=== PATIENT | female | born 1945 | race Caucasian/White ===

== ENCOUNTER 2016-08-12 16:50 | Emergency (ER) | payer OTHER, MEDICARE ==
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
--- NOTE | 2016-08-12 17:11 | XR ---
EXAMINATION TYPE: XR pelvis AP view DATE OF EXAM: 08/12/2016 5:07 PM CLINICAL HISTORY: pain TECHNIQUE: Single view the pelvis is submitted. FINDINGS: No evidence for fracture, dislocation or bony lesion. Joint spaces are well-preserved. S I joints appear symmetric. IMPRESSION: 1. No acute fracture or dislocation seen. ICD 10 NO FRACTURE, INITIAL EVALUATION
--- NOTE | 2016-08-12 17:13 | XR ---
EXAMINATION TYPE: XR chest 1V portable DATE OF EXAM: 08/12/2016 5:07 PM COMPARISON: 04/04/2010 HISTORY: Shortness of breath TECHNIQUE: Frontal and lateral views of the chest are obtained. FINDINGS: Scattered senescent parenchymal changes noted. Hyperinflation compatible with COPD. No evidence for infiltrate. No evidence for atelectasis. Heart size is stable. Mediastinal structures are stable and grossly unremarkable. No evidence for hilar prominence. Degenerative changes dorsal spine. IMPRESSION: 1. No evidence for acute pulmonary disease.
[2016-08-12 17:22] LABS: Basophils % (A) 0 %; CH 31.1; Eosinophils # (A) 0.1 k/uL (0-0.7); Eosinophils % (A) 1 %; HCT 40.1 % (34.0-46.0); HDW 2.14; HGB 13.7 gm/dL (11.4-16.0); Luc # (Auto) 0.21; Luc % (Auto) 3; Lymphocytes % (A) 29 %; MCH 31.2 pg (25.0-35.0); MCV 91.7 fL (80.0-100.0); Mean Platelet Volume 7.1; Monocytes # (A) 0.4 k/uL (0-1.0); Monocytes % (A) 6 %; Neutrophils # (A) 4.1 k/uL (1.3-7.7); Neutrophils % (A) 61 %; RBC 4.38 m/uL (3.80-5.40); RDW 12.8 % (11.5-15.5); WBC 6.8 k/uL (3.8-10.6)
[2016-08-12 17:23] LABS: Glucose,Whole Blood 99 mg/dL (75-99)
[2016-08-12 17:31] LABS: ALT 83 U/L (9-52); AST 178 U/L (14-36); Alcohol <10 mg/dL; Alkaline Phosphatase 72 U/L (38-126); Amylase 101 U/L (30-110); Anion Gap 10 mmol/L; Blood Urea Nitrogen 12 mg/dL (7-17); Calcium 9.9 mg/dL (8.4-10.2); Carbon Dioxide 24 mmol/L (22-30); Chloride 105 mmol/L (98-107); Glucose 106 mg/dL (74-99); Non-African American GFR(MDRD) >60 (>60 ml/min/1.73 sqM); Potassium 4.2 mmol/L (3.5-5.1); Sodium 139 mmol/L (137-145); Total Bilirubin 0.9 mg/dL (0.2-1.3); Total Protein 7.7 g/dL (6.3-8.2)
[2016-08-12 17:36] LABS: Creatine Kinase 125 U/L (30-135)
[2016-08-12 17:38] LABS: Partial Thromboplastin Time 21.3 sec (22.0-30.0); Prothrombin Time 10.3 sec (9.0-12.0)
[2016-08-12 17:49] LABS: Creatine Kinase MB 1.6 ng/mL (0.0-2.4); Troponin I <0.012 ng/mL (0.000-0.034)
[2016-08-12] MEDS ORDERED: ONDANSETRON 4 MG/2 ML VIAL IVP STA (17:58)
[2016-08-12] MEDS ORDERED: KETOROLAC 30 MG/ML 1 ML VIAL IVP STA (17:58)
--- NOTE | 2016-08-12 18:30 | XR ---
EXAMINATION TYPE: XR humerus LT DATE OF EXAM: 08/12/2016 6:19 PM CLINICAL HISTORY: pain TECHNIQUE: Frontal and lateral images of the left humerus are obtained. COMPARISON: None. FINDINGS: There is no acute fracture/dislocation evident. The joint spaces appear within normal limi ts. The overlying soft tissue appears unremarkable. IMPRESSION: There is no acute fracture or dislocation. ICD 10 NO FRACTURE, INITIAL EVALUATION
--- NOTE | 2016-08-12 18:33 | XR ---
EXAMINATION TYPE: XR tibia fibula RT DATE OF EXAM: 08/12/2016 6:20 PM CLINICAL HISTORY: pain TECHNIQUE: AP and lateral images of the right tibia and fibula are obtained. COMPARISON: None. FINDINGS: There is no acute fracture/dislocation evident. The joint spaces appear within normal hines its. The overlying soft tissue appears unremarkable. IMPRESSION: There is no acute fracture or dislocation seen. ICD 10 NO FRACTURE, INITIAL EVALUATION
[2016-08-12 19:17] VITALS: BP 164/74; PULSE 104; RESP 18; TEMP 98
== END 2016-08-12 19:12 | disposition home or self-care (01) ==
LOC: EC 16:50
DX: T14.8 Other injury of unspecified body region (principal); Z79.82 Long term (current) use of aspirin; M25.512 Pain in left shoulder; M25.562 Pain in left knee; V89.2XXA Person injured in unspecified motor-vehicle accident, traffic, initial encounter; Y92.89 Other specified places as the place of occurrence of the external cause
CPT/HCPCS: 99285; 96374; 96375; 36415; 93005; 80053; 82150; 82550; 82553; 83690; 84484; 85025; 85610; 85730; 80320; 71010; 72170; 73060; 73590; J2405; J1885

== ENCOUNTER → 2016-12-18 | Outpatient (CLI) | payer MEDICARE, OTHER ==
--- NOTE | 2016-12-24 07:06 | MM ---
Reason for exam: screening (asymptomatic). History: Patient is postmenopausal, has history of other cancer at age 69, and has history of endometrial cancer at age 41. Benign excisional biopsy of both breasts. Physical Findings: A clinical breast exam by your physician is recommended on an annual basis and results should be correlated with mammographic findings. MG 3D Screening Mammo W/Cad Bilateral CC and MLO view(s) were taken. No prior studies available for comparison. The breast tissue is extremely dense which could obscure a lesion on mammography. There is no discrete abnormality. ASSESSMENT: Benign, BI-RAD 2 RECOMMENDATION: Routine screening mammogram of both breasts in 1 year.
== END | disposition home or self-care (01) ==
LOC: RADMAMWWP 14:32
PROVIDERS: ATTEND Family Medicine
DX: Z12.31 Encounter for screening mammogram for malignant neoplasm of breast (principal)
CPT/HCPCS: 77063; G0202

== ENCOUNTER 2017-10-12 11:40 | Emergency (ER) | payer MEDICARE, OTHER ==
[2017-10-12 12:03] VITALS: RESP 16
--- NOTE | 2017-10-12 12:37 | XR ---
EXAMINATION TYPE: XR hand complete RT DATE OF EXAM: 10/12/2017 COMPARISON: NONE HISTORY: 71-year-old female with bruising and swelling to the hand after fall TECHNIQUE: 3 views FINDINGS: Degenerative spurring and joint space narrowing throughout the DIP joints. No acute fracture, subluxa tion, or dislocation. IMPRESSION: Osteoarthritic changes without acute osseous abnormality seen.
[2017-10-12] MEDS ORDERED: DIPH,PERTUS(ACELL)TETVAC-LF 0.5 ML VIAL IM ONE (12:40)
--- NOTE | 2017-10-12 12:50 | ED ---
General Adult HPI - General Chief complaint: Fall Stated complaint: FALL, RT HEAD, HAND, ARM AND KNEE INJURY Time Seen by Provider: 10/12/17 12:05 Source: patient, RN notes reviewed Mode of arrival: ambulatory Limitations: no limitations - History of Present Illness Initial comments: 71-year-old female presents to the emergency department for a chief complaint of right hand pain x 2 hours. Patient was walking on a sidewalk when she tripped on uneven cement. Patient fell on her right hand and right knee. Patient also scraped her right forehead on the ground. Patient denies loss of consciousness, headache, vomiting or nausea, confusion. Patient denies any visual changes. Patient denies being on blood thinners. Patient denies pain in the right knee but states there is a small abrasion. Patient states most of the pain is in her right hand. Patient denies wrist pain. Patient has no other complaints at this time including shortness of breath, chest pain, abdominal pain, nausea or vomiting, headache, or visual changes. - Related Data Home Medications Medication Instructions Recorded Confirmed Aspirin EC [Ecotrin Low Dose] 81 mg PO DAILY 08/12/16 08/12/16 Previous Rx's Medication Instructions Recorded traMADol HCl [Ultram] 50 mg PO Q6H PRN #20 tab 08/12/16 Allergies Allergy/AdvReac Type Severity Reaction Status Date / Time No Known Allergies Allergy Verified 10/12/17 12:03 Review of Systems ROS Statement: Those systems with pertinent positive or pertinent negative responses have been documented in the HPI. ROS Other: All systems not noted in ROS Statement are negative. Past Medical History Additional Past Medical History / Comment(s): skin cancer on leg History of Any Multi-Drug Resistant Organisms: None Reported Past Surgical History: Back Surgery, Cholecystectomy, Hysterectomy Past Psychological History: No Psychological Hx Reported Smoking Status: Never smoker Past Alcohol Use History: None Reported Past Drug Use History: None Reported General Exam - General Exam Comments Initial Comments: Right hand: Tenderness over the second and third dorsal MCP joints. Tenderness in the second and third digits. Patient does have about 45 of flexion of the second and third digits and full extension. There is mild ecchymosis over the second and third dorsal MCP joints and digits. Radial pulse 2+. Sensation intact in the right upper extremity. Patient has full range of motion of the right wrist. No tenderness in the right wrist including the scaphoid. No tenderness in the right elbow. No abrasions or openings in the skin. Right knee. Patient has full range of motion of the right knee including flexion and extension. No tenderness to the right knee. Patient is able to walk on the right knee without any pain or difficulty. Pedal pulse 2+ and capillary refill less than 2 seconds in the right lower extremity. Patient does have a 1 cm x 1 cm abrasion on the anterior right knee. No lacerations. No foreign bodies. No signs of infection. Limitations: no limitations General appearance: alert, in no apparent distress Head exam: Present: atraumatic (No contusions noted on the scalp. No signs of trauma on the scalp.), normocephalic, other (There is a small 0.5 cm laceration on the lateral right eyebrow. Small 1 cm x 1 cm contusion surrounding the laceration.) Eye exam: Present: normal appearance, PERRL, EOMI. Absent: scleral icterus, conjunctival injection, periorbital swelling, periorbital tenderness ENT exam: Present: normal exam, normal oropharynx, mucous membranes moist, TM's normal bilaterally (Negative hemotympanums), normal external ear exam Neck exam: Present: normal inspection, full ROM. Absent: tenderness, meningismus, lymphadenopathy Respiratory exam: Present: normal lung sounds bilaterally. Absent: respiratory distress, wheezes, rales, rhonchi, stridor Cardiovascular Exam: Present: regular rate, normal rhythm, normal heart sounds. Absent: systolic murmur, diastolic murmur, rubs, gallop, clicks Back exam: Present: normal inspection, full ROM. Absent: tenderness Neurological exam: Present: alert, oriented X3, CN II-XII intact, normal gait, reflexes normal, other (GCS 15). Absent: motor sensory deficit Course Vital Signs 10/12/17 12:01 Temperature 97.9 F Pulse Rate 83 Respiratory 16 Rate Blood Pressure 180/76 O2 Sat by Pulse 99 Oximetry Medical Decision Making - Medical Decision Making 71-year-old female presents to the emergency department for a chief complaint of fall. Patient complains of pain in the right hand. Patient has tenderness of the MCP joints limited range of motion. Neurovascular intact. There is some swelling of the second and third MCP joints and digits. No pain or tenderness in the wrist or scaphoid. X-ray demonstrates no acute fractures or dislocations. Hand was wrapped with an Bin wrap and patient was educated to rest ice and elevate the hand. Patient also has a 1 cm x 1 cm abrasion on the right knee. Patient is able to walk on the knee without any pain. Full range of motion of the knee. I offered x-ray of the knee which patient refused. Patient also scraped her forehead on the ground. Patient has a 0.5 cm laceration just lateral to the right eyebrow. This was cleaned and bacitracin was applied. Offered a CAT scan and patient refused. She states she will return if she develops any symptoms such as a headache. Patient denies any visual changes. Neuro exam shows no focal deficits. GCS 15. Patient denies headache, nausea, vomiting, blood thinners, confusion. Patient will follow up with primary care in 1-2 days. She was educated that she may need repeat x- rays of the hand in 7-10 days if symptoms do not resolve. She will return to the emergency Department if she has any worsening symptoms. Disposition Clinical Impression: Fall, Hand pain Disposition: HOME SELF-CARE Condition: Good Instructions: Head Injury (ED), Hand Sprain (ED), RICE Therapy (ED) Additional Instructions: Please take Tylenol for pain. Please rest ice and elevate the right hand. If symptoms continue for 7-10 days you may need repeat x-rays. Return to the emergency department if you have any worsening symptoms including severe headache, vomiting, or any other concerns. Follow up with primary care in 1-2 days. Is patient prescribed a controlled substance at d/c from ED?: No Referrals: Landen Chávez MD [Primary Care Provider] - 1-2 days Time of Disposition: 12:49
[2017-10-12 13:46] VITALS: BP 178/80; PULSE 70; TEMP 98
== END 2017-10-12 13:45 | disposition home or self-care (01) ==
LOC: EC 11:40
DX: S01.111A Laceration without foreign body of right eyelid and periocular area, initial encounter (principal); S60.221A Contusion of right hand, initial encounter; S80.211A Abrasion, right knee, initial encounter; S00.81XA Abrasion of other part of head, initial encounter; R40.2412 Glasgow coma scale score 13-15, at arrival to emergency department; Z79.82 Long term (current) use of aspirin; Z23 Encounter for immunization; W18.09XA Striking against other object with subsequent fall, initial encounter; Y93.01 Activity, walking, marching and hiking; Y92.480 Sidewalk as the place of occurrence of the external cause
CPT/HCPCS: 90471; 90715; 99283

== ENCOUNTER 2018-04-22 02:31 | Observation (INO) | payer MEDICARE, OTHER ==
[2018-04-22] MEDS ORDERED: ASPIRIN 81 MG PO STA (02:44)
[2018-04-22] MEDS ORDERED: NITROGLYCERIN SL TABS 0.4 MG TAB SUBLINGUAL STA (02:59)
[2018-04-22 03:09] LABS: Basophils % (A) 1 %; Eosinophils # (A) 0.3 k/uL (0-0.7); Eosinophils % (A) 5 %; HCT 40.4 % (34.0-46.0); HGB 12.7 gm/dL (11.4-16.0); Lymphocytes # (A) 1.9 k/uL (1.0-4.8); Lymphocytes % (A) 31 %; MCH 29.2 pg (25.0-35.0); MCHC 31.4 g/dL (31.0-37.0); MCV 92.8 fL (80.0-100.0); Mean Platelet Volume 6.4; Monocytes # (A) 0.4 k/uL (0-1.0); Monocytes % (A) 7 %; Neutrophils # (A) 3.2 k/uL (1.3-7.7); Neutrophils % (A) 53 %; Platelet Count 324 k/uL (150-450); RBC 4.35 m/uL (3.80-5.40); RDW 13.1 % (11.5-15.5); WBC 6.1 k/uL (3.8-10.6)
--- NOTE | 2018-04-22 03:12 | XR ---
EXAMINATION TYPE: XR chest 2V DATE OF EXAM: 04/22/2018 COMPARISON: 08/12/2016 HISTORY: Chest pain TECHNIQUE: Frontal and lateral views of the chest are obtained. FINDINGS: Heart is normal. There are calcified granulomata at the pulmonary autumn. There is no pleura l effusion. There is no heart failure. There are chest leads. There is mild interstitial density in t he upper lobes. IMPRESSION: Old granulomatous disease. Upper lobe pulmonary fibrotic changes. No acute lung disease. No significant change compared to old exam.
--- NOTE | 2018-04-22 03:12 | ED ---
Chest Pain HPI - General Chief Complaint: Chest Pain Stated Complaint: chest pain Time Seen by Provider: 04/22/18 02:44 Source: patient Mode of arrival: ambulatory Limitations: no limitations - History of Present Illness Initial Comments: Miraim is a pleasant 72-year-old female no significant past medical history who presents to the emergency department tonight for evaluation of chest pressure and discomfort. Patient reports she has had intermittent chest pressure since however this evening it became much worse. She describes the sensation as being somewhat like indigestion but with pressure and some difficulty breathing. She reports that today it got worse which prompted her bring her to the ER for evaluation. does report that she has been fighting bronchitis for approximately 2 weeks and does feel at been improving over the past couple of days. She denies any productive cough or shortness of breath. - Related Data Home Medications Medication Instructions Recorded Confirmed Aspirin EC [Ecotrin Low Dose] 81 mg PO DAILY 08/12/16 08/12/16 Previous Rx's Medication Instructions Recorded traMADol HCl [Ultram] 50 mg PO Q6H PRN #20 tab 08/12/16 Allergies Allergy/AdvReac Type Severity Reaction Status Date / Time No Known Allergies Allergy Verified 04/22/18 02:39 Review of Systems ROS Statement: Those systems with pertinent positive or pertinent negative responses have been documented in the HPI. ROS Other: All systems not noted in ROS Statement are negative. EKG Findings - EKG Comments: EKG Findings:: EKG obtained at 2:47 AM, rate is 86 rhythm is sinus there is normal axis, normal intervals, IN 150 QRS 72 QTc 416, there are no acute ST elevations or depressions or evidence of acute ischemia or infarction Past Medical History Additional Past Medical History / Comment(s): skin cancer on leg. History of Any Multi-Drug Resistant Organisms: None Reported Past Surgical History: Back Surgery, Cholecystectomy, Hysterectomy Past Psychological History: No Psychological Hx Reported Smoking Status: Never smoker Past Alcohol Use History: None Reported Past Drug Use History: None Reported General Exam - General Exam Comments Initial Comments: Physical Exam GENERAL: Patient is well-developed and well-nourished. Patient is nontoxic and well- hydrated and is in no distress. HENT: Normocephalic, Atraumatic. EYES: PERRL, EOMI PULMONARY: Unlabored respirations. No audible rales rhonchi or wheezing was noted. CARDIOVASCULAR: There is a regular rate and rhythm without any murmurs gallops or rubs. ABDOMEN: Soft and nontender with normal bowel sounds. SKIN: Skin is clear with no lesions or rashes and otherwise unremarkable. : Deferred NEUROLOGIC: Patient is alert and oriented x3. Moving all extremities spontaneously MUSCULOSKELETAL: Normal extremities with adequate strength and full range of motion. No lower extremity swelling or edema. No calf tenderness. PSYCHIATRIC: Normal psychiatric evaluation. Limitations: no limitations Limitations: no limitations Course Vital Signs 04/22/18 04/22/18 02:35 03:14 Temperature 98.3 F 98.0 F Pulse Rate 87 89 Respiratory 16 16 Rate Blood Pressure 178/96 161/79 O2 Sat by Pulse 100 100 Oximetry Chest Pain MDM - MDM The patient was seen and evaluated, history was obtained from the patient and at bedside Patient no history of hypertension presenting with profound hypertension and chest pressure EKG with no acute changes sibling will nitro was ordered Patient was reevaluated after nitro she reports her pain is decreased to a 3 out of 10 Nitro ointment ordered Labs are reviewedsignificant abnormalities, troponin not elevated Patient care was discussed with the patient's primary care physician Dr. Chávez who accepts the admission for hypertensive urgency and chest pain. Disposition Clinical Impression: Hypertensive urgency Disposition: ADMITTED IP TO THIS HOSP Referrals: Landen Chávez MD [Primary Care Provider] - 1-2 days
[2018-04-22 03:19] LABS: ALT 21 U/L (9-52); AST 24 U/L (14-36); Albumin 4.2 g/dL (3.5-5.0); Alkaline Phosphatase 65 U/L (38-126); Amylase 82 U/L (30-110); Anion Gap 9 mmol/L; Blood Urea Nitrogen 11 mg/dL (7-17); Calcium 9.6 mg/dL (8.4-10.2); Carbon Dioxide 25 mmol/L (22-30); Chloride 107 mmol/L (98-107); Glucose 104 mg/dL (74-99); Lipase 158 U/L (23-300); Magnesium 1.8 mg/dL (1.6-2.3); Potassium 4.2 mmol/L (3.5-5.1); Sodium 141 mmol/L (137-145); Total Bilirubin 0.5 mg/dL (0.2-1.3); Total Protein 7.4 g/dL (6.3-8.2)
[2018-04-22 03:26] LABS: INR 0.9 (<1.2); Partial Thromboplastin Time 22.4 sec (22.0-30.0); Prothrombin Time 9.4 sec (9.0-12.0)
[2018-04-22 03:31] LABS: Creatine Kinase 69 U/L (30-135)
[2018-04-22 03:43] LABS: Creatine Kinase MB 0.8 ng/mL (0.0-2.4); Troponin I <0.012 ng/mL (0.000-0.034)
[2018-04-22] MEDS ORDERED: NITROGLYCERIN OINT 1 INCH/GM PACKET TOPICAL STA (03:45)
[2018-04-22] MEDS ORDERED: NITROGLYCERIN SL TABS 0.4 MG TAB SUBLINGUAL PRN (07:29)
[2018-04-22 10:53] LABS: Creatine Kinase 58 U/L (30-135)
[2018-04-22 11:05] LABS: Creatine Kinase MB 0.5 ng/mL (0.0-2.4); Troponin I <0.012 ng/mL (0.000-0.034)
[2018-04-22 15:44] LABS: Creatine Kinase 65 U/L (30-135)
[2018-04-22 15:58] LABS: Creatine Kinase MB 0.4 ng/mL (0.0-2.4); Troponin I <0.012 ng/mL (0.000-0.034)
[2018-04-23 03:18] LABS: Cholesterol 223 mg/dL (<200); HDL Cholesterol 85 mg/dL (40-60); LDL Cholesterol,Calculated 124 mg/dL (0-99); Triglycerides 69 mg/dL (<150)
--- NOTE | 2018-04-23 08:25 | P.HPIM ---
History of Present Illness H&P Date: 04/22/18 Chief Complaint: Chest pressure. This is a 72-year-old white female with history of significant chest pressure on that several hours prior to admission. There is no radiation but the pain was severe. Workup so far has been negative. The patient seems to resting comfortably but given her age and symptomatology and prior history, she is appropriately admitted for chest pain Review of Systems Constitutional: Denies chills, Denies fever Eyes: denies blurred vision, denies pain Ears, nose, mouth and throat: Denies headache, Denies sore throat Cardiovascular: Reports chest pain, Denies shortness of breath Respiratory: Denies cough Past Medical History Past Medical History: Cancer Additional Past Medical History / Comment(s): melanoma skin cancer on lt leg. BRONCHITIS, touch of emphysema, hepatitis in her 30's"they think i may have gotten it from water or food source". 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 grandmother also had colon ca Father Family Medical History: Coronary Artery Disease (CAD), Myocardial Infarction ([place] ) Medications and Allergies Home Medications Medication Instructions Recorded Confirmed Type Amoxicillin 500 mg PO TID 04/22/18 04/22/18 History Benzonatate [Tessalon Perles] 100 mg PO TID 04/22/18 04/22/18 History Allergies Allergy/AdvReac Type Severity Reaction Status Date / Time No Known Allergies Allergy Verified 04/22/18 09:25 Physical Exam Vitals: Vital Signs Temp Pulse Pulse Pulse Resp BP BP 04/23/18 07:15 97.7 F 80 16 129/68 04/23/18 04:00 77 16 04/23/18 03:29 98.2 F 95 16 138/73 04/23/18 00:00 16 04/22/18 23:43 98.3 F 96 16 118/57 04/22/18 20:00 16 04/22/18 19:21 98.2 F 84 16 160/73 04/22/18 15:57 75 18 149/70 04/22/18 14:45 98.5 F 84 18 170/74 04/22/18 12:30 76 18 133/69 Pulse Ox 04/23/18 07:15 97 04/23/18 04:00 04/23/18 03:29 97 04/23/18 00:00 04/22/18 23:43 96 04/22/18 20:00 04/22/18 19:21 98 04/22/18 15:57 97 04/22/18 14:45 99 04/22/18 12:30 100 Intake and Output 04/22/18 04/23/18 04/23/18 22:59 06:59 14:59 Intake Total 100 Balance 100 Intake: Oral 100 Other: Voiding Method Toilet Toilet # Voids 1 1 - Constitutional General appearance: no acute distress, thin - EENT Eyes: EOMI - Neck Neck: no lymphadenopathy - Respiratory Respiratory: bilateral: CTA - Cardiovascular Rhythm: regular Heart sounds: normal: S1, S2 Abnormal Heart Sounds: no S3 Gallop - Gastrointestinal General gastrointestinal: soft, no tenderness - Neurologic Neurologic: CNII-XII intact - Musculoskeletal Musculoskeletal: no generalized weakness - Psychiatric Psychiatric: A&O x's 3, intact judgment & insight Results CBC & Chem 7: 04/22/18 03:00 04/22/18 03:00 Labs: Abnormal Lab Results - Last 24 Hours (Table) 04/22/18 Range/Units 03:00 Cholesterol 223 H (<200) mg/dL LDL Cholesterol, Calc 124 H (0-99) mg/dL HDL Cholesterol 85 H (40-60) mg/dL Thrombosis Risk Factor Assmnt - Choose All That Apply Any of the Below Risk Factors Present?: No Other Risk Factors: Yes Each Risk Factor Represents 2 Points: Age 61-74 years Thrombosis Risk Factor Assessment Total Risk Factor Score: 2 Thrombosis Risk Factor Assessment Level: Low Risk Assessment and Plan (1) Chest pain Current Visit: Yes Status: Acute Code(s): R07.9 - CHEST PAIN, UNSPECIFIED SNOMED Code(s): 27647393 (2) Hypertensive urgency Current Visit: Yes Status: Acute Code(s): I16.0 - HYPERTENSIVE URGENCY SNOMED Code(s): 837241563 Plan: Rule out myocardial infraction. Cardiology consultation. Reconcile home medications as necessary. See orders otherwise.
[2018-04-23] MEDS ORDERED: ASPIRIN 325 MG TAB PO SCH (09:00)
--- NOTE | 2018-04-23 10:50 | P.CRDCN ---
History of Present Illness History of present illness: This is a pleasant 72-year-old female past medical history significant for skin melanoma and recent diagnosis of bronchitis. She denies history of coronary artery disease, hypertension, dyslipidemia or diabetes mellitus. She has never seen a psychiatric security nurse for any reason. We have been asked to see her in consultation for chest pain. She states approximately 2 weeks ago she started antibiotics and tessalon pearles for bronchitis. During the course of the bronchitis she has felt a pressure in her chest. Worse with coughing or movement of the torso. She finished the antibiotics and her coughing has greatly improved. However, her pressure in the chest has continued. Described as a burning at times with no relief from tums. She has mild shortness of breath as well. She denies pain with exertion. Denies palpitations, nausea, vomiting or diaphoresis. EKG reveals sinus mechanism with no acute ST or T-wave abnormalities. Chest xray reveals mild pulmonary fibrosis. Laboratory data reviewed, WBC 6.1, hgb 12.7. plt 324, sodium 141, potassium 4.2 , creatinine 0.51, magnesium 1.8, cardiac enzymes negative x3, NT-proBNP 245, LDL 124, HDL 85. No current cardiac medications. No old records to review. At the time of my exam: CONSTITUTIONAL: Denies fever. Denies chills. EYES: Denies blurred vision. Denies vision changes. Denies eye pain. EARS, NOSE, MOUTH & THROAT: Denies headache. Denies sore throat. Denies ear pain. CARDIOVASCULAR: Denies chest pain. Denies shortness of breath. Denies orthopnea. Denies PND. Denies palpitations. RESPIRATORY: Denies cough. GASTROINTESTINAL: Denies abdominal pain. Denies diarrhea. Denies constipation. Denies nausea. Denies vomiting. MUSCULOSKELETAL: Denies myalgias. INTEGUMENTARY: Denies pruitis. Denies rash. NEUROLOGIC: Denies numbness. Denies tingling. Denies weakness. PSYCHIATRIC: Denies anxiety. Denies depression. ENDOCRINE: Denies fatigue. Denies weight change. Denies polydipsia. Denies polyurina. GENITOURINARY: Denies burning, hematuria or urgency with micturation. HEMATOLOGIC: Denies history of anemia. Denies bleeding. Blood pressure 129/68 heart rate 88 afebrile maintaining oxygen saturation on room air GENERAL: This is a 72-year-old female in no apparent distress at the time of my examination. HEENT: Head is atraumatic, normocephalic. Pupils are equal, round. Sclerae anicteric. Conjunctivae are clear. Mucous membranes of the mouth are moist. Neck is supple. There is no jugular venous distention. No carotid bruit is heard. LUNGS: Clear to auscultation no wheezes, rales or rhonchi. No chest wall tenderness is noted on palpation or with deep breathing. HEART: Regular rate and rhythm without murmurs, rubs or gallops. S1 and S2 heard. ABDOMEN: Soft, nontender. Bowel sounds are heard. No organomegaly noted. EXTREMITIES: No evidence of peripheral edema and no calf tenderness noted. VASCULAR: Radial and dorsalis pedis pulses palpated, no evidence of clubbing. NEUROLOGIC: Patient is awake, alert and oriented x3. ASSESSMENT Chest pain, atypical. An acute coronary event has been ruled out with no EKG evidence of ischemia and negative cardiac enzymes. Dyslipidemia Recent treated for bronchitis, resolved PLAN An acute coronary event has been ruled out. Obtain 2-D echocardiogram and Doppler study to assess cardiac structure and function. Initiate on rosuvastatin 20 mg daily. Follow up liver function in 3 months. Perform stress echocardiogram to assess for stress-induced cardiac ischemia. Stress test is normal she is stable from a cardiac perspective. Follow up with Dr. Laboy in the office in 2-3 weeks. Ongoing medical management per primary care team. Thank you kindly for this consultation. Nurse Practitioner note has been reviewed, I agree with a documented findings and plan of care. Patient was seen and examined. Past Medical History Past Medical History: Cancer Additional Past Medical History / Comment(s): melanoma skin cancer on lt leg. BRONCHITIS, touch of emphysema, hepatitis in her 30's"they think i may have gotten it from water or food source". 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 grandmother also had colon ca Father Family Medical History: Coronary Artery Disease (CAD), Myocardial Infarction ([place] ) Medications and Allergies Home Medications Medication Instructions Recorded Confirmed Type Amoxicillin 500 mg PO TID 04/22/18 04/22/18 History Benzonatate [Tessalon Perles] 100 mg PO TID 04/22/18 04/22/18 History Allergies Allergy/AdvReac Type Severity Reaction Status Date / Time No Known Allergies Allergy Verified 04/22/18 09:25 Physical Exam Vitals: Vital Signs Temp Pulse Pulse Pulse Resp BP BP 04/23/18 07:15 97.7 F 80 16 129/68 04/23/18 04:00 77 16 04/23/18 03:29 98.2 F 95 16 138/73 04/23/18 00:00 16 04/22/18 23:43 98.3 F 96 16 118/57 04/22/18 20:00 16 04/22/18 19:21 98.2 F 84 16 160/73 04/22/18 15:57 75 18 149/70 04/22/18 14:45 98.5 F 84 18 170/74 04/22/18 12:30 76 18 133/69 Pulse Ox 04/23/18 07:15 97 04/23/18 04:00 04/23/18 03:29 97 04/23/18 00:00 04/22/18 23:43 96 04/22/18 20:00 04/22/18 19:21 98 04/22/18 15:57 97 04/22/18 14:45 99 04/22/18 12:30 100 Intake and Output 04/22/18 04/23/18 04/23/18 22:59 06:59 14:59 Intake Total 100 Balance 100 Intake: Oral 100 Other: Voiding Method Toilet Toilet # Voids 1 1 Results 04/22/18 03:00 04/22/18 03:00 Cardiac Enzymes 04/22/18 04/22/18 Range/Units 09:17 15:18 CK-MB (CK-2) 0.5 0.4 (0.0-2.4) ng/mL Troponin I <0.012 <0.012 (0.000-0.034) ng/mL Lipids 04/22/18 Range/Units 03:00 Triglycerides 69 (<150) mg/dL Cholesterol 223 H (<200) mg/dL HDL Cholesterol 85 H (40-60) mg/dL Current Medications Generic Name Dose Route Start Last Admin Trade Name Freq PRN Reason Stop Dose Admin Aspirin 325 mg 04/23/18 09:00 Aspirin PO DAILY SILVINA Nitroglycerin 0.4 mg 04/22/18 07:29 Nitrostat SUBLINGUAL Q5M PRN Chest Pain Intake and Output 04/22/18 04/23/18 04/23/18 22:59 06:59 14:59 Intake Total 100 Balance 100 Intake: Oral 100 Other: Voiding Method Toilet Toilet # Voids 1 1 04/22/18 03:00 04/22/18 03:00
[2018-04-23] MEDS ORDERED: ATORVASTATIN 20 MG TAB PO SCH (11:00)
[2018-04-23 11:43] VITALS: BP 123/74; PULSE 88; RESP 18; TEMP 98.2
--- NOTE | 2018-04-23 11:47 | ECHOF ---
Referral Reason: MEASUREMENTS -------- HEIGHT: 152.4 cm WEIGHT: 46.7 kg BP: IVSd: 0.8 cm (0.6 - 1.1) LVIDd: 3.9 cm (3.9 - 5.3) LVPWd: 0.9 cm (0.6 - 1.1) IVSs: 1.1 cm LVIDs: 1.9 cm LVPWs: 1.4 cm LAESV Index (A-L): 16.22 ml/m Ao Diam: 2.6 cm (2.0 - 3.7) AV Cusp: 1.6 cm (1.5 - 2.6) LA Diam: 3.0 cm (2.7 - 3.8) MV EXCURSION: 13.991 mm (> 18.000) MV EF SLOPE: 150 mm/s (70 - 150) EPSS: 1.6 cm MV E Baron: 0.84 m/s MV DecT: 242 ms MV A Baron: 0.66 m/s MV E/A Ratio: 1.27 RAP: 5.00 mmHg RVSP: 11.86 mmHg FINDINGS -------- Sinus rhythm. This was a technically good study. The left ventricular size is normal. Left ventricular wall thickness is normal. Overall left vent ricular systolic function is normal with, an EF between 55 - 60 %. The right ventricle is normal in size and function. The left atrium is normal in size. The right atrium is normal in size. Aortic valve is trileaflet and is mildly thickened. The mitral valve leaflets are mildly thickened. Mild mitral regurgitation is present. Trace tricuspid regurgitation present. The right ventricular systolic pressure, as measured by Dopp ler, is 11.86mmHg. Pulmonic valve appears structurally normal. The aortic root size is normal. Normal inferior vena cava with normal inspiratory collapse consistent with estimated right atrial pre ssure of 5 mmHg. The pericardium is normal. CONCLUSIONS -------- 1. Sinus rhythm. 2. This was a technically good study. 3. The left ventricular size is normal. 4. Left ventricular wall thickness is normal. 5. Overall left ventricular systolic function is normal with, an EF between 55 - 60 %. 6. The right ventricle is normal in size and function. 7. The left atrium is normal in size. 8. The right atrium is normal in size. 9. Aortic valve is trileaflet and is mildly thickened. 10. The mitral valve leaflets are mildly thickened. 11. Mild mitral regurgitation is present. 12. Trace tricuspid regurgitation present. 13. The right ventricular systolic pressure, as measured by Doppler, is 11.86mmHg. 14. Pulmonic valve appears structurally normal. 15. The aortic root size is normal. 16. Normal inferior vena cava with normal inspiratory collapse consistent with estimated right atrial pressure of 5 mmHg. 17. The pericardium is normal. UNIFORM DESIGNER: Alina Sanches RDCS
--- NOTE | 2018-04-26 11:34 | ECHOS ---
STRESS ECHOCARDIOGRAM INDICATIONS: Chest pain. MEDICATIONS: BASELINE HEART RATE: 84 BASELINE BLOOD PRESSURE: 133/64 MAXIMUM HEART RATE: 136 MAXIMUM BLOOD PRESSURE: 190/73 85% MPHR: 124 100% MPHR: 146 METS: 7.1 MAXIMUM STAGE REACHED: 2 TOTAL EXERCISE TIME: 6:00 CLINICAL INFORMATION: The patient was exercised for a total period of 6 minutes. Peak heart rate of 136 was achieved. Maximum blood pressure of 190/73 mmHg was noted. Resting EKG shows normal sinus rhythm with normal IN interval and QRS duration and normal ST-T waves. No ST- segment depression suggestive of ischemia was noted. The baseline echocardiographic images reveals normal left ventricular chamber size with normal left ventricular systolic function. In the immediate postexercise, normal increase in the wall thickness and contractility is noted. FINAL IMPRESSION: This stress echocardiographic study is negative for stress-induced ischemia. The patient's exercise tolerance is average. [id number] / IJN: [id number] /
== END 2018-04-23 13:47 | disposition home or self-care (01) ==
LOC: EC 02:31 → 1SOBS 07:29
PROVIDERS: ADMIT Family Medicine; ATTEND Family Medicine
DX: R07.89 Other chest pain (principal); I16.0 Hypertensive urgency; E78.5 Hyperlipidemia, unspecified; J84.10 Pulmonary fibrosis, unspecified; J43.9 Emphysema, unspecified; Z85.820 Personal history of malignant melanoma of skin; Z86.19 Personal history of other infectious and parasitic diseases; Z90.49 Acquired absence of other specified parts of digestive tract; Z90.710 Acquired absence of both cervix and uterus; Z98.42 Cataract extraction status, left eye; Z98.41 Cataract extraction status, right eye; Z79.2 Long term (current) use of antibiotics; Z79.899 Other long term (current) drug therapy; Z80.0 Family history of malignant neoplasm of digestive organs; Z82.49 Family history of ischemic heart disease and other diseases of the circulatory system
CPT/HCPCS: 99285; 36415; 93005; 93306; 93351; 83880; 80061; 80053; 82150; 82550; 82553; 83690; 83735; 84484; 85025; 85610; 85730; 71046; G0378 ×2

== ENCOUNTER 2023-04-07 16:51 | Emergency (ER) | payer MEDICARE, OTHER ==
[2023-04-07 17:19] VITALS: TEMP 97
--- NOTE | 2023-04-07 17:38 | ED ---
Overdose HPI - General Chief Complaint: Overdose Stated Complaint: AMS Time Seen by Provider: 04/07/23 17:04 Source: EMS, RN notes reviewed, old records reviewed Mode of arrival: EMS Limitations: altered mental status - History of Present Illness Initial Comments: This is a 77-year-old female who did take some marijuana Gummi and a drink earlier today. Patient has persistent symptoms here in the emergency department. Patient is having persistent chest pain but severe anxiety secondary symptoms decreased level responsiveness. Patient does admit to drinking alcohol and taking the THC Gummi prior to arrival. This was at the advice of family member, something she has never done before MD Complaint: accidental overdose (THC and alcohol trach) -: minutes(s) Intent: unknown How Overdose Was Discovered: family/friend present at time Context: Accidental Overdose: wanted to get high (Took as pain relief and medication to help sleep) Associated Symptoms: abdominal pain (Patient was having some back pain) Treatments Prior to Arrival: none - Related Data Home Medications Medication Instructions Recorded Confirmed Amoxicillin 500 mg PO TID 04/22/18 04/22/18 Benzonatate [Tessalon Perles] 100 mg PO TID 04/22/18 04/22/18 Previous Rx's Medication Instructions Recorded Atorvastatin [Lipitor] 20 mg PO DAILY #90 tab 04/23/18 Allergies Allergy/AdvReac Type Severity Reaction Status Date / Time No Known Allergies Allergy Verified 04/07/23 16:59 Review of Systems ROS Statement: Those systems with pertinent positive or pertinent negative responses have been documented in the HPI. ROS Other: All systems not noted in ROS Statement are negative. Past Medical History Past Medical History: Cancer Additional Past Medical History / Comment(s): melanoma skin cancer on lt leg. BRONCHITIS, touch of emphysema, hepatitis in her 30's"they think i may have gotten it from water or food source". 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 they do chest x rays History of Any Multi-Drug Resistant Organisms: None Reported Past Surgical History: Back Surgery, Cholecystectomy, Hysterectomy Additional Past Surgical History / Comment(s): cataracts, melanoma ski cancer removed lt leg, colonoscopy Past Anesthesia/Blood Transfusion Reactions: Postoperative Nausea & Vomiting (PONV) Additional Past Anesthesia/Blood Transfusion Reaction / Comment(s): "has never recieved any blood transfusions" Past Psychological History: No Psychological Hx Reported Smoking Status: Unknown if ever smoked Past Alcohol Use History: None Reported Past Drug Use History: None Reported - Past Family History Mother Family Medical History: Cancer Additional Family Medical History / Comment(s): colon cancer. grandmother also had colon ca Father Family Medical History: Coronary Artery Disease (CAD), Myocardial Infarction ([place]) General Exam Limitations: altered mental status General appearance: alert, in no apparent distress Head exam: Present: atraumatic, normocephalic, normal inspection Eye exam: Present: normal appearance, PERRL, EOMI. Absent: scleral icterus, conjunctival injection, periorbital swelling ENT exam: Present: normal exam, mucous membranes moist Neck exam: Present: normal inspection. Absent: tenderness, meningismus, lymphadenopathy Respiratory exam: Present: normal lung sounds bilaterally. Absent: respiratory distress, wheezes, rales, rhonchi, stridor Cardiovascular Exam: Present: regular rate, normal rhythm, normal heart sounds. Absent: systolic murmur, diastolic murmur, rubs, gallop, clicks GI/Abdominal exam: Present: soft, normal bowel sounds. Absent: distended, tenderness, guarding, rebound, rigid Extremities exam: Present: normal inspection, full ROM, normal capillary refill. Absent: tenderness, pedal edema, joint swelling, calf tenderness Back exam: Present: normal inspection Neurological exam: Present: alert, oriented X3, CN II-XII intact Psychiatric exam: Present: normal affect, normal mood Skin exam: Present: warm, dry, intact, normal color. Absent: rash Course Vital Signs 04/07/23 04/07/23 04/07/23 16:52 17:30 17:59 Temperature 97 F L Pulse Rate 90 67 71 Respiratory 18 18 18 Rate Blood Pressure 164/57 130/60 132/55 O2 Sat by Pulse 100 100 100 Oximetry 04/07/23 19:26 Temperature Pulse Rate 77 Respiratory 17 Rate Blood Pressure 129/62 O2 Sat by Pulse 98 Oximetry - Reevaluation(s) Reevaluation #1: Medical record is reviewed Reevaluation #2: Patient continually improved throughout ER stay Reevaluation #3: Patient informed of results and questions answered Reevaluation #4: Was pt. sent in by a medical professional or institution (, PA, COUNTERINTELLIGENCE AGENT, urgent care, hospital, or prison...) When possible be specific @ -no Did you speak to anyone other than the patient for history (EMS, parent, family, police, friend...)? What history was obtained from this source @ -no Did you review nursing and triage notes (agree or disagree)? Why? @ -agree Are old charts reviewed (outside hosp., previous admission, EMS record, old EKG, old radiological studies, urgent care reports/EKG's, prison records)? Report findings @ -yes Differential Diagnosis (chest pain, altered mental status, abdominal pain women, abdominal pain men, vaginal bleeding, weakness, fever, dyspnea, syncope, headache, dizziness, GI bleed, back pain, seizure, CVA, palpatations, mental health, musculoskeletal)? @ -prior EKG interpreted by me (3pts min.). @ -no X-rays interpreted by me (1pt min.). @ -no CT interpreted by me (1pt min.). @ -no U/S interpreted by me (1pt. min.). @ -no What testing was considered but not performed or refused? (CT, X-rays, U/S, labs)? Why? @ -none What meds were considered but not given or refused? Why? @ -none Did you discuss the management of the patient with other professionals (professionals i.e. , PA, COUNTERINTELLIGENCE AGENT, lab, RT, psych nurse, social media community manager, outside energy sales representatives, teacher, disability insurance hearing officer, high risk case manager)? Give summary @ -no Was smoking cessation discussed for >3mins.? @ -no Was critical care preformed (if so, how long)? @ -no Were there social determinants of health that impacted care today? How? (Homelessness, low income, unemployed, alcoholism, drug addiction, transportation, low edu. Level, literacy, decrease access to med. care, nursing home, rehab)? @ -none Was there de-escalation of care discussed even if they declined (Discuss DNR or withdrawal of care, Hospice)? DNR status @ -no What co-morbidities impacted this encounter? (DM, HTN, Smoking, COPD, CAD, Cancer, CVA, ARF, Chemo, Hep., AIDS, mental health diagnosis, sleep apnea, morbid obesity)? @ -none Was patient admitted / discharged? Hospital course, mention meds given and route, prescriptions, significant lab abnormalities, going to OR and other pertinent info. @ - 77 female who presented for evaluation of chest pain after taking marijuana THC Gummi as well as having a drink prior to arrival. Patient is in no distress and feels well throughout ER stay can be discharged home Discharge Undiagnosed new problem with uncertain prognosis? @ -no Drug Therapy requiring intensive monitoring for toxicity (Heparin, Nitro, Insulin, Cardizem)? @ -no Were any procedures done? @ -no Diagnosis/symptom? @ -THC, chest pain, overdose, anxiety Acute, or Chronic, or Acute on Chronic? @ -Acute Uncomplicated (without systemic symptoms) or Complicated (systemic symptoms)? @ -Complicated Side effects of treatment? @ -no Exacerbation, Progression, or Severe Exacerbation? @ -exacerbation Poses a threat to life or bodily function? How? (Chest pain, [place], [place], pneumonia, PE, COPD, DKA, ARF, appy, cholecystitis, CVA, Diverticulitis, Homicidal, Suicidal, threat to staff... and all critical care pts) @ -no Reevaluation #5: Differential Altered Mental Status: Hypoglycemia, DKA, hypercapnia, ETOH, overdose, CO poisoning, trauma, myxedema coma, HTN encephalopathy, infection, encephalitis, psychosis, intercranial hemorrhage, hepatic encephalopathy, meningitis, CVA, this is not meant to be an all-inclusive list Medical Decision Making - Medical Decision Making 77 female who presented for evaluation of chest pain after taking marijuana THC Gummi as well as having a drink prior to arrival. Patient is in no distress and feels well throughout ER stay can be discharged home - Lab Data Lab Results 04/07/23 Range/Units 17:39 POC Glucose (mg/dL) 104 (70-110) mg/dL POC Glu Radio Interference Supervisor ID Emilio Chan Disposition Clinical Impression: Chest pain, Accidental drug overdose, Anxiety Disposition: HOME SELF-CARE Condition: Fair Instructions (If sedation given, give patient instructions): Adult Overdose (ED) Is patient prescribed a controlled substance at d/c from ED?: No Referrals: Landen Chávez MD [Primary Care Provider] - 1-2 days Time of Disposition: 19:20
[2023-04-07 17:40] LABS: Glucose,Whole Blood 104 mg/dL (70-110)
[2023-04-07] MEDS ORDERED: ONDANSETRON 4 MG/2 ML VIAL IVP STA (18:00)
[2023-04-07] MEDS ORDERED: SODIUM CHLORIDE 0.9% 500 ML 500 ML IV ONE (18:07)
[2023-04-07 19:32] VITALS: BP 129/62; PULSE 77; RESP 17
== END 2023-04-07 20:06 | disposition home or self-care (01) ==
LOC: EC 16:51
DX: T40.711A Poisoning by cannabis, accidental (unintentional), initial encounter (principal); R07.89 Other chest pain; F41.9 Anxiety disorder, unspecified
CPT/HCPCS: 36415; 99284; 96374; J2405